=== PATIENT | female | born 1960 | race African-American/Black ===

== ENCOUNTER 2019-11-02 15:58 | Emergency (ER) | payer OTHER ==
[~2019-11-02] VITALS: Ht 160 cm; Wt 70.3 kg
[~2019-11-02 15:58] MED LIST: FLEXERIL; NORCO 5-325 TA1 EACH; NORCO 5-325 TA1 EACH PO; NORFLEX100 MG PO; ULTRAM 50MG TAB50 MG PO
[2019-11-02 16:44] LABS: ABSOLUTE NEUTROPHILS 7.7 thou/uL (1.4-8.2); BASOPHILS 0.6 % (0.0-2.0); EOSINOPHILS 0.9 % (0.0-3.0); HEMOGLOBIN 12.8 gm/dL (12.0-15.0); LYMPHOCYTES 12.3 % (24.0-44.0); MCH 29.2 pg (26.0-34.0); MCHC 32.7 g/dL (28.0-37.0); MCV 89.2 fL (80.0-100.0); MONOCYTES 4.8 % (1.0-8.0); PLATELET COUNT 307 thou/uL (150-400); POLYS 81.4 % (36.0-66.0); RBC 4.37 mil/uL (4.20-5.00); RDW 13.2 % (10.5-14.5); WBC 9.5 thou/uL (4.0-11.0)
[2019-11-02 18:42] LABS: ALBUMIN 3.8 g/dL (3.4-5.0); ANION GAP 8 mmol/L (7-16); BUN 10 mg/dL (7-18); CALCIUM 9.2 mg/dL (8.5-10.1); CHLORIDE 105 mmol/L (98-107); CO2 28 mmol/L (21-32); CREATININE 0.8 mg/dL (0.6-1.0); GLUCOSE 99 mg/dL (74-106); POTASSIUM 3.4 mmol/L (3.5-5.1); SGOT 23 U/L (15-37); SGPT 23 U/L (30-65); SODIUM 141 mmol/L (136-145); TOTAL BILIRUBIN 0.5 mg/dL (<0.1-1.0); TOTAL PROTEIN 7.9 g/dL (6.4-8.2); TROPONIN-I <0.06 ng/mL (<0.06)
[2019-11-02] MEDS ORDERED: BENTYL 20 MG TA20 M1 PO (19:50)
[2019-11-02] MEDS ORDERED: ZOFRAN ODT4 MG PO (19:50)
[2019-11-02 20:16] VITALS: BP 120/76
--- NOTE | 2019-11-05 08:06 | EKG ---
[facility] [place] [address] ELECTROCARDIOGRAM REPORT Name: SYBIL BRISENO Room #: DEP [facility]#: [id number] Admission: 11/02/19 Attend Phys: Discharge: 11/02/19 Date of : 64 Report #: [id number] THIS REPORT FOR: cc: KETAN ROBERTS Physician not on staff Stewart Ham MD [facility] THIS REPORT FOR: //name// 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 : 1960 Requested By: Keo Mcdermott Order Number: [id number] MD: Stewart Ham Measurements Intervals [place] Rate: 66 P: 17 FL: 168 QRS: -6 QRSD: 90 T: -5 QT: 398 QTc: 417 Interpretive Statements Sinus rhythm Borderline T abnormalities, diffuse leads Compared to ECG 08/31/2010 02:55:41 Premature ventricular complexes no longer present T-wave abnormality still present Electronically Signed On 11-05-2019 8:04:42 CDT by Stewart Ham [email or web address] <ELECTRONICALLY SIGNED> By: Stewart Ham MD, FACC 11/05/19 0804 1616 1616 Stewart Ham MD, [facility] /EPI
== END 2019-11-02 20:16 | disposition home or self-care (01) ==
LOC: ER 15:58
PROVIDERS: Emergency Medicine; Nurse Practitioner Family
DX: R11.2 Nausea with vomiting, unspecified (principal); R10.12 Left upper quadrant pain; R10.32 Left lower quadrant pain; R42 Dizziness and giddiness

== ENCOUNTER 2021-03-13 15:10 | Emergency (ER) | payer OTHER ==
[~2021-03-13] VITALS: Ht 160 cm; Wt 72.6 kg
[~2021-03-13 15:10] MED LIST changes: +BENTYL 20 MG TA20 M1 PO; +ZOFRAN ODT4 MG PO
[2021-03-13 15:55] LABS: ABSOLUTE NEUTROPHILS 4.1 thou/uL (1.4-8.2); BASOPHILS 0.8 % (0.0-2.0); EOSINOPHILS 1.6 % (0.0-3.0); HEMATOCRIT 37.6 % (37.0-47.0); HEMOGLOBIN 12.3 gm/dL (12.0-15.0); LYMPHOCYTES 26.1 % (24.0-44.0); MCH 28.8 pg (26.0-34.0); MCHC 32.6 g/dL (28.0-37.0); MCV 88.4 fL (80.0-100.0); MONOCYTES 8.3 % (1.0-8.0); PLATELET COUNT 270 thou/uL (150-400); POLYS 63.2 % (36.0-66.0); RBC 4.25 mil/uL (4.20-5.00); RDW 13.9 % (10.5-14.5); WBC 6.6 thou/uL (4.0-11.0)
[2021-03-13 16:00] LABS: ANION GAP 7 mmol/L (7-16); BUN 11 mg/dL (7-18); CHLORIDE 107 mmol/L (98-107); CO2 28 mmol/L (21-32); CREATININE 0.9 mg/dL (0.6-1.0); GLUCOSE 86 mg/dL (74-106); POTASSIUM 3.7 mmol/L (3.5-5.1); SODIUM 142 mmol/L (136-145)
[2021-03-13 16:10] LABS: ALBUMIN 3.8 g/dL (3.4-5.0); LIPASE 197 U/L (73-393); SGOT 23 U/L (15-37); SGPT 27 U/L (14-59); TOTAL BILIRUBIN 0.7 mg/dL (0.2-1.0); TOTAL PROTEIN 8.3 g/dL (6.4-8.2); TROPONIN-I <0.06 ng/mL (<0.06)
[2021-03-13 19:57] VITALS: BP 111/69
[2021-03-13] MEDS ORDERED: AZITHROMYCIN500 MG PO (20:01)
--- NOTE | 2021-03-14 10:44 | EKG ---
[facility] [email or web address] [address] ELECTROCARDIOGRAM REPORT Name: SYBIL BRISENO [id number] Admission: 03/13/21 Attend Phys: Discharge: 03/13/21 Date of : 64 Report #: [id number] [facility] ED Test Date: 2021-03-13 Test Time: 15:22:29 Pat Name: SYBIL BRISENO Department: Room: Gender: F Deboner: PAVITHRA : 1960 Requested By: Joshua Qureshi Order Number: [id number] MD: Stewart Ham Measurements Intervals [place] Rate: 74 P: 60 [place]: 166 QRS: -18 QRSD: 87 T: 19 QT: 394 QTc: 438 Interpretive Statements Sinus rhythm Abnormal R-wave progression, early transition Nonspecific T wave abnormality Compared to ECG 11/02/2019 16:16:30 T-wave abnormality is less prominent Electronically Signed On 03-14-2021 10:44:11 CDT by Stewart Ham [email or web address] <ELECTRONICALLY SIGNED> By: Stewart Ham MD, [facility] 03/14/21 1044 D: [id number] 21 Stewart Ham MD, FACC /EPI
== END 2021-03-13 20:31 | disposition home or self-care (01) ==
LOC: ER 15:10
PROVIDERS: Emergency Medicine
DX: J18.9 Pneumonia, unspecified organism (principal); Z20.822 Contact with and (suspected) exposure to COVID-19; Z90.89 Acquired absence of other organs; Z90.710 Acquired absence of both cervix and uterus

== ENCOUNTER 2021-03-27 16:30 | Emergency (ER) | payer OTHER ==
[~2021-03-27] VITALS: Ht 160 cm; Wt 74.8 kg
[~2021-03-27 16:30] MED LIST changes: +AZITHROMYCIN500 MG PO
[2021-03-27 18:57] LABS: HEMATOCRIT 36.4 % (37.0-47.0); HEMOGLOBIN 11.9 gm/dL (12.0-15.0); MCH 28.7 pg (26.0-34.0); MCHC 32.7 g/dL (28.0-37.0); MCV 87.8 fL (80.0-100.0); RBC 4.14 mil/uL (4.20-5.00); RDW 13.6 % (10.5-14.5); WBC 7.3 thou/uL (4.0-11.0)
[2021-03-27 18:59] LABS: URINE BILIRUBIN NEGATIVE (Negative); URINE BLOOD 1+ (Negative); URINE CLARITY CLEAR; URINE COLOR YELLOW; URINE GLUCOSE-RANDOM* NEGATIVE (Negative); URINE KETONES 1+ (Negative); URINE LEUKOCYTES-REFLEX NEGATIVE (Negative); URINE NITRITE-REFLEX NEGATIVE (Negative); URINE PROTEIN (DIPSTICK) NEGATIVE (Negative)
[2021-03-27 19:03] LABS: CALCIUM 8.3 mg/dL (8.5-10.1); CREATININE 0.9 mg/dL (0.6-1.0); POTASSIUM 3.2 mmol/L (3.5-5.1)
[2021-03-27 19:06] LABS: BACTERIA-REFLEX >30 Many /HPF (None Seen); SQUAMOUS >10 Many /LPF (0-3); URINE WBC-REFLEX 0-5 Rare /HPF (0-5)
[2021-03-27 19:07] LABS: CASTS None Seen /LPF (None Seen); CRYSTALS None Seen /LPF (None Seen)
[2021-03-27 19:09] LABS: ALBUMIN 3.6 g/dL (3.4-5.0); TOTAL BILIRUBIN 0.6 mg/dL (0.2-1.0)
[2021-03-27] MEDS ORDERED: NORCO5 PO ×2 (20:00→21:08)
[2021-03-27] MEDS ORDERED: CEPHALEXIN500 MG PO (20:00)
[2021-03-27] MEDS ORDERED: ZOFRAN ODT4 MG DISSOLVE (20:00)
[2021-03-27 20:09] VITALS: BP 118/97
--- NOTE | 2021-03-28 12:19 | EKG ---
[place] [address] [facility] [place] [address] ELECTROCARDIOGRAM REPORT Name: SYBIL BRISENO 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: LEON : 1960 Requested By: Ellen Page Order Number: [id number] MD: Akil Han Measurements Intervals [place] Rate: 72 P: 45 DC: 167 QRS: -21 QRSD: 92 T: -26 QT: 405 QTc: 444 Interpretive Statements Sinus rhythm Borderline left axis deviation Abnormal R-wave progression, early transition Borderline T abnormalities, diffuse leads Baseline wander in lead(s) III Compared to ECG 03/13/2021 15:22:29 No significant changes Electronically Signed On 03-28-2021 12:18:54 CDT by Akil Han [email or web address] <ELECTRONICALLY SIGNED> By: Akil Han MD 03/28/21 1218 1654 1654 Akil Han MD /EPI
== END 2021-03-27 20:10 | disposition home or self-care (01) ==
LOC: ER 16:30
PROVIDERS: Nurse Practitioner Family
DX: R10.32 Left lower quadrant pain (principal); R10.31 Right lower quadrant pain; Z90.89 Acquired absence of other organs; Z90.710 Acquired absence of both cervix and uterus; Z88.0 Allergy status to penicillin

== ENCOUNTER 2021-08-10 09:19 | Emergency (ER) | payer OTHER ==
[~2021-08-10] VITALS: Ht 160 cm; Wt 72.6 kg
[~2021-08-10 09:19] MED LIST changes: +CEPHALEXIN500 MG PO; +NORCO5 PO; +ZOFRAN ODT4 MG DISSOLVE
[2021-08-10 09:48] LABS: ABSOLUTE NEUTROPHILS 5.1 thou/uL (1.4-8.2); BASOPHILS 0.7 % (0.0-2.0); EOSINOPHILS 2.1 % (0.0-3.0); HEMATOCRIT 39.7 % (37.0-47.0); HEMOGLOBIN 12.7 gm/dL (12.0-15.0); LYMPHOCYTES 20.5 % (24.0-44.0); MCH 28.8 pg (26.0-34.0); MCV 89.9 fL (80.0-100.0); MONOCYTES 5.3 % (1.0-8.0); POLYS 71.4 % (36.0-66.0); RBC 4.42 mil/uL (4.20-5.00); RDW 13.8 % (10.5-14.5); WBC 7.1 thou/uL (4.0-11.0)
[2021-08-10 09:58] LABS: CALCIUM 8.8 mg/dL (8.5-10.1); CREATININE 0.8 mg/dL (0.6-1.0); POTASSIUM 3.9 mmol/L (3.5-5.1)
[2021-08-10 10:27] VITALS: BP 105/70
[2021-08-10 11:59] LABS: PLATELET COUNT 297 thou/uL (150-400)
--- NOTE | 2021-08-10 15:33 | EKG ---
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 : 1960 Requested By: Carlos Mujica Order Number: [id number] MD: Aj Rendon Measurements Intervals [place] Rate: 61 P: 51 [place]: 169 QRS: -6 QRSD: 91 T: 6 QT: 405 QTc: 408 Interpretive Statements Sinus rhythm Low voltage, precordial leads Abnormal R-wave progression, early transition Compared to ECG 03/27/2021 16:54:01 Low QRS voltage now present T-wave abnormality no longer present Electronically Signed On 08-10-2021 15:32:44 EKG/ECG TECHNICIAN by Aj Rendon [email or web address] <ELECTRONICALLY SIGNED> By: Aj Rendon MD, [facility] 08/10/21 1532 1 1 Aj Rendon MD, FAC /EPI
== END 2021-08-10 10:56 | disposition home or self-care (01) ==
LOC: ER 09:19
PROVIDERS: Student in an Organized Health Care Education/Training Program
DX: R07.89 Other chest pain (principal); Z90.710 Acquired absence of both cervix and uterus; Z90.89 Acquired absence of other organs; Z88.0 Allergy status to penicillin